=== PATIENT | male | born 1970 | race Caucasian/White ===

== ENCOUNTER 2020-11-26 21:41 | Emergency (ER) | payer OTHER, SELFPAY ==
[2020-11-26 21:58] VITALS: BP 147/94; PULSE 66; RESP 15; TEMP 36.6; O2SAT 97; BMI 41.7
--- NOTE | 2020-11-26 22:44 | W.ED.ABDPA2 ---
HPI - Abdominal Pain General: Chief Complaint: Abdominal Pain Stated Complaint: SHARP PAIN R SIDE, N/V Time Seen by Provider: 11/26/20 22:32 History of Present Illness: HPI narrative: Patient is a 50-year-old male comes to the ED with right flank pain, nausea and vomiting. Patient says symptoms started tonight abruptly just prior to arrival. He rates the pain a 9 out of 10 at its located in his right flank region. The pain has caused him multiple episodes of nausea and vomiting. He states that he cannot get comfortable and is constantly moving around due to the pain. He reports some mild dysuria but no visible blood in urine. Denies any fever, chills, chest pain, bowel symptoms. Denies any history of kidney stones. Associated Symptoms: Reports dysuria (mild burning pain when urinating), nausea and vomiting; Denies chills, constipation, diarrhea, fever(s), hematochezia and hematuria Review of Systems Const: Denies: fever(s), chills or fatigue Eyes: Denies: change in vision or eye discomfort ENMT: Denies: throat pain, odynophagia, nasal discharge or nasal congestion Card: Denies: chest pain, palpitations, edema, swelling of feet/ankles, dyspnea on exertion or orthopnea Resp: Denies: dyspnea, productive cough or non-productive cough GI: Reports: abdominal pain (right flank pain), nausea and vomiting; Denies: diarrhea, constipation or hematochezia : Reports: flank pain (right) and dysuria (mild burning pain when urinating); Denies: difficulty urinating or hematuria Musc: Denies: neck pain, back pain or extremity swelling Skin/Breast: Denies: rash or new lesions Neuro: Denies: headache(s), numbness in extremities or weakness in extremities PFSH ED PFSH: Family History Father CAD (coronary artery disease) Denies family history of Anesthesia complication Bleeding disorder Social History Smoking and tobacco status: never smoked Alcohol intake: never Adopted: No Caregiver/support person: Yes Lives independently: Yes Household members: spouse Housing: House Marital status: Sexually active: No Current gender identity: Male Kayla/Jainism: Orthodox Special kayla needs: No Physical Exam Const: COMMON NORMALS: patient oriented x3 and alert GENERAL APPEARANCE: cooperative and in distress (Patient appears in pain and is pacing in the room.) HENMT: COMMON NORMALS: normocephalic HEAD & SCALP: normocephalic MOUTH: Normal oral and palatal mucosa present THROAT: posterior oropharynx normal and uvula midline Neck/C-Spine: COMMON NORMALS: supple GENERAL: Yes normal visual inspection Resp: COMMON NORMALS: normal respiratory effort, No retractions, No use of accessory muscles and clear to auscultation bilaterally AUSCULTATION: clear to auscultation bilaterally Cardio: COMMON NORMALS: regular rate, regular rhythm, S1 normal heart sound present, S2 normal heart sound present, No gallops present (Cardio), No clicks present (Cardio), No murmurs present (Cardio) and Peripheral pulses 2+ throughout RATE: regular rate RHYTHM: regular rhythm HEART SOUNDS: S1 normal heart sound present and S2 normal heart sound present PERIPHERAL PULSES: Peripheral pulses 2+ throughout GI: COMMON NORMALS: Normal to inspection, nondistended, normoactive bowel sounds present, Soft to palpation and no masses PALPATION: Yes Soft to palpation and Yes Tenderness to palpation present (GI) (Generalized right flank tenderness. No localized tenderness noted) : COMMON NORMALS: Yes no CVA tenderness BLADDER/KIDNEY EXAM: Yes no CVA tenderness Back/Pelvis: COMMON NORMALS: no CVA tenderness Extremity: COMMON NORMALS: normal to inspection Neuro: COMMON NORMALS: patient oriented x3 SENSORIUM/ORIENTATION: Yes alert GAIT: Yes Normal gait present Skin: GENERAL SKIN EXAM: dry skin Course Reevaluation(s): Reevaluation #1: After patient received Toradol his right flank pain greatly improved. He was laying comfortably on exam bed in the room. Time: 00:29 Vital Signs: Vital signs: Vital Signs Temperature 98 F 11/26/20 21:58 Pulse Rate 62 11/27/20 00:17 Respiratory Rate 18 11/27/20 00:17 Blood Pressure 126/80 11/27/20 00:17 Pulse Oximetry 94 11/27/20 00:17 MDM - Abdominal Pain MDM Narrative: Medical decision making narrative: Patient is a 50-year-old male comes to the ED with right flank pain. Patient presents to the ED with classic kidney stone symptoms. Patient was pacing around the room due to being uncomfortable and in pain when I enter the room. He had some right flank tenderness upon exam. CBC, CMP were unremarkable. UA was positive for blood but no signs of infection noted. CT abdomen pelvis showed a 2 mm stone at right UVJ. Patient was given a dose of Toradol here in the ED and his pain improved greatly. He was also given a dose of tamsulosin IV fluids. I placed an order with case management to have patient referred to Dr. Garrett the urologist. Patient diagnosed with kidney stone on right side and discharged home with a prescription for naproxen, Zofran, tamsulosin and a written prescription for hydrocodone 5/325 mg 8 tablets. I told him family service caseworker will contact him in the next several days to set up an appointment with Dr. Garrett the urologist. Told the strain urine to catch stone to bring to urology for further analysis. Return to ED precautions given. Patient understood agree with plan. Lab Data: Attestation: I reviewed the patient's lab results. Labs: Lab Results 11/26/20 11/26/20 11/26/20 Range/Units 22:41 22:48 22:48 WBC 6.9 (4.0-10.0) 10^3/ uL RBC 5.20 (4.1-5.3) 10^6/u L Hgb 16.6 (11.7-16.6) g/dL Hct 46.8 (42.0-52.0) % MCV 90.0 (80-94) fL MCH 31.9 (28.0-34.0) pg MCHC 35.5 (30.0-36.0) g/dL RDW 13.3 (12.1-15.1) % Plt Count 147 (130-400) 10^3/c mm MPV 10.7 H (7.4-10.4) fL Neut % (Auto) 59.3 % Lymph % (Auto) 28.0 % [place] % (Auto) 9.7 % Eos % (Auto) 2.2 % Baso % (Auto) 0.7 % Neut # (Auto) 4.12 (1.8-7.7) 10^3/u L Lymph # (Auto) 1.9 (0.8-4.8) 10^3/u L [place] # (Auto) 0.7 (0.2-0.9) 10^3/u L Eos # (Auto) 0.2 (0.0-0.8) 10^3/u L Baso # (Auto) 0.1 (0.0-0.1) 10^3/u L Nucleated RBC % (a uto) 0 % Nucleated RBCs # 0.0 /100WBC Sodium 140 (136-145) mmol/L Potassium 3.9 (3.5-5.1) mmol/L Chloride 104 (98-107) mmol/L Carbon Dioxide 24 (22-29) mmol/L Anion Gap 15.9 (5-19) BUN 20 (6-20) mg/dL Creatinine 0.7 (0.7-1.2) mg/dL GFR Calculation 118.4 (90-130) mL/min Glucose 173 H (65-115) mg/dL Calculated Osmolal ity 297 H (285-295) mOsm/k g Calcium 9.2 (8.5-10.5) mg/dL Total Bilirubin 0.7 (0.15-1.2) mg/dL AST 38 (0-40) U/L ALT 36 (0-41) U/L Alkaline Phosphata se 82 (40-130) IU/L Total Protein 7.0 (6.6-8.7) g/dL Albumin 4.5 (3.5-5.2) g/dL Globulin 2.5 (1.3-4.6) g/dL Lipase 22 (13-60) U/L Urine Color Yellow (Yellow) Urine Appearance Clear (CLEAR) Urine pH 5 (5-7) Ur Specific Gravit y 1.030 (1.005-1.030) Urine Protein Neg (Negative) Urine Glucose (UA) Norm (Normal) Urine Ketones Negative (Negative) Urine Blood 2+ H (Negative) Urine Nitrate Negative (Negative) Urine Bilirubin Neg (Negative) Urine Urobilinogen Norm (Negative) mg/dL Ur Leukocyte Racquel ase Negative (Negative) Urine RBC 5-10 H (0-2) /hpf Urine WBC None (0-5) /hpf Ur Squamous Epith Cells 10-15 H (0-5) /hpf Amorphous Sediment Not Reportable Urine Bacteria Trace (NONE) /hpf Urine Mucus 2+ /hpf Imaging Data ^: CT Abd/Pel: Attestation: I personally reviewed and interpreted this imaging study as follows: Radiologist's impression: [address] [place] [address] CT Scan Report Signed Patient: Gumaro Pineda Unit #: [id number] : [id number] Age/Sex: 50 / M ADM Date: 11/26/20 Loc: ER Room/Bed: Attending Dr: Ordering Provider/Ordering MD: Ron Hartmann Date of Service: 11/26/20 Procedure(s): CT kidney stone 75412 Accession Number(s): [id number] Report Number: [id number] PROCEDURE INFORMATION: Exam: CT Abdomen And Pelvis Without Contrast Exam date and time: 11/26/2020 10:52 PM Age: 50 years old Clinical indication: Abdominal pain; Flank; Right; Prior surgery; Surgery type: Gb; Additional info: Right flank pain TECHNIQUE: Imaging protocol: Computed tomography of the abdomen and pelvis without contrast. Radiation optimization: All CT scans at this facility use at least one of these dose optimization techniques: automated exposure control; mA and/or kV adjustment per patient size (includes targeted exams where dose is matched to clinical indication); or iterative reconstruction. COMPARISON: No relevant prior studies available. RADIATION DOSE METRICS: Total DLP (mGy-cm): 2016.84 FINDINGS: Liver: Mild peripheral nodularity of the liver seen suggesting a degree of cirrhosis. Gallbladder and bile ducts: Cholecystectomy. Pancreas: Normal. No ductal dilation. Spleen: Spleen enlarged to 16 cm. Adrenal glands: Normal. No mass. Kidneys and ureters: Right ureterovesical junction punctate 2.3 mm calculus suspected on image 2 series 176 with mild right hydronephrosis and hydroureter. Stomach and bowel: Diverticulosis without diverticulitis. Appendix: No evidence of appendicitis. Intraperitoneal space: Unremarkable. No free air. No significant fluid collection. Vasculature: Unremarkable. No abdominal aortic aneurysm. Lymph nodes: Unremarkable. No enlarged lymph nodes. Urinary bladder: Unremarkable as visualized. Reproductive: Unremarkable as visualized. Bones/joints: Unremarkable. No acute fracture. Soft tissues: Unremarkable. CT/CT kidney stone [id number] IMPRESSION: 1. Right ureterovesical junction punctate 2.3 mm calculus suspected on image 2 series 176 with mild right hydronephrosis and hydroureter. 2. Spleen enlarged to 16 cm. 3. Mild peripheral nodularity of the liver seen suggesting a degree of cirrhosis. 4. Cholecystectomy. 5. Diverticulosis without diverticulitis. Radiation Dose CTDIVOL = (mGy): DLP = 2016.84 (mGy-cm) Dictated By: Geoffrey Wise MD Signed By: Geoffrey Wise MD Signed Date/Time: 11/26/200 DD/ [id number] Discharge Plan Discharge Patient Disposition: Home Clinical Impression: Kidney stone on right side Condition: Stable Prescriptions: New Zofran 4 mg tablet 4 mg PO Q8H Qty: 12 RF: 0 tamsulosin 0.4 mg capsule 0.4 mg PO DAILY Qty: 20 RF: 0 naproxen 500 mg tablet 500 mg PO BID PRN (Reason: pain) Qty: 15 RF: 0 No Action metformin 500 mg tablet 500 mg PO BID RF: 0 Discharge Orders: Discharge ED (Routine); Ordered 11/27/20 Ordered By: Ron Hartmann Referrals: Arya Shelby MD [Primary Care Provider] - Patient Instructions: Kidney Stones (ED), How to Strain Your Urine (ED), Opioid Safety Activity Restrictions/Additional Instructions: Follow-up with medical provider as directed. Case management should be contacting you in the next several days to set up an appointment with Dr. Garrett the urologist. Strain urine to catch stone and drink lots of fluid to stay hydrated and help pass stone. Take medications as prescribed. Return to the ER or your medical provider if condition worsens. Please read and understand discharge instructions. If any questions, please ask. Coding Level of Care Code ED B And B Gang Worker for Chg Fwd Exam Comprehensive
--- NOTE | 2020-11-26 22:49 | CTR_ITS ---
PROCEDURE INFORMATION: Exam: CT Abdomen And Pelvis Without Contrast Exam date and time: 11/26/2020 10:52 PM Age: 50 years old Clinical indication: Abdominal pain; Flank; Right; Prior surgery; Surgery type: Gb; Additional info: Right flank pain TECHNIQUE: Imaging protocol: Computed tomography of the abdomen and pelvis without contrast. Radiation optimization: All CT scans at this facility use at least one of these dose optimization techniques: automated exposure control; mA and/or kV adjustment per patient size (includes targeted exams where dose is matched to clinical indication); or iterative reconstruction. COMPARISON: No relevant prior studies available. RADIATION DOSE METRICS: Total DLP (mGy-cm): FINDINGS: Liver: Mild peripheral nodularity of the liver seen suggesting a degree of cirrhosis. Gallbladder and bile ducts: Cholecystectomy. Pancreas: Normal. No ductal dilation. Spleen: Spleen enlarged to 16 cm. Adrenal glands: Normal. No mass. Kidneys and ureters: Right ureterovesical junction punctate 2.3 mm calculus suspected on image 2 series 176 with mild right hydronephrosis and hydroureter. Stomach and bowel: Diverticulosis without diverticulitis. Appendix: No evidence of appendicitis. Intraperitoneal space: Unremarkable. No free air. No significant fluid collection. Vasculature: Unremarkable. No abdominal aortic aneurysm. Lymph nodes: Unremarkable. No enlarged lymph nodes. Urinary bladder: Unremarkable as visualized. Reproductive: Unremarkable as visualized. Bones/joints: Unremarkable. No acute fracture. Soft tissues: Unremarkable. CT/CT kidney stone [id number] IMPRESSION: 1. Right ureterovesical junction punctate 2.3 mm calculus suspected on image 2 series 176 with mild right hydronephrosis and hydroureter. 2. Spleen enlarged to 16 cm. 3. Mild peripheral nodularity of the liver seen suggesting a degree of cirrhosis. 4. Cholecystectomy. 5. Diverticulosis without diverticulitis. Radiation Dose CTDIVOL = (mGy): DLP = (mGy-cm)
[2020-11-26 22:53] LABS: Bilirubin Urine Neg (Negative); Blood Urine 2+ (Negative); Glucose Urine UA Norm (Normal); Ketones Urine Negative (Negative); Leukocyte Esterase Urine Negative (Negative); Nitrate Urine Negative (Negative); Protein Urine Neg (Negative); Urine Appearance Clear (CLEAR); Urine Color Yellow (Yellow); Urobilinogen Urine Norm (Negative); pH Urine 5 (5-7)
[2020-11-26 22:54] LABS: Bacteria Urine TRACE /hpf; Mucus Urine 2+ /hpf
[2020-11-26 22:54] LABS: Basophils # 0.1 10^3/uL (0.0-0.1); Basophils % 0.7 %; Eosinophils # 0.2 10^3/uL (0.0-0.8); Eosinophils % 2.2 %; Hematocrit 46.8 % (42.0-52.0); Hemoglobin 16.6 g/dL (11.7-16.6); Lymphocytes # 1.9 10^3/uL (0.8-4.8); Mean Corpuscular HGB Conc 35.5 g/dL (30.0-36.0); Mean Corpuscular Hemoglobin 31.9 pg (28.0-34.0); Mean Platelet Volume 10.7 fL (7.4-10.4); Monocytes # 0.7 10^3/uL (0.2-0.9); Monocytes % 9.7 %; Neutrophils # 4.12 10^3/uL (1.8-7.7); Neutrophils % 59.3 %; Nucleated Red Blood Cells % 0 %; Platelet Count 147 10^3/cmm (130-400); Red Cell Distribution Width 13.3 % (12.1-15.1); White Blood Count 6.9 10^3/uL (4.0-10.0)
[2020-11-26 22:55] LABS: Add Urine Culture? No
[2020-11-26 23:11] LABS: Alanine Aminotransferase 36 U/L (0-41); Albumin Level 4.5 g/dL (3.5-5.2); Alkaline Phosphatase 82 IU/L (40-130); Anion Gap 15.9 (5-19); Aspartate Amino Transferase 38 U/L (0-40); Blood Urea Nitrogen 20 mg/dL (6-20); Calcium 9.2 mg/dL (8.5-10.5); Carbon Dioxide 24 mmol/L (22-29); Chloride 104 mmol/L (98-107); Globulin 2.5 g/dL (1.3-4.6); Glomerular Filtration Rate 118.4 mL/min (90-130); Glucose 173 mg/dL (65-115); Lipase 22 U/L (13-60); Osmolality Calculated 297 mOsm/kg (285-295); Potassium 3.9 mmol/L (3.5-5.1); Sodium 140 mmol/L (136-145); Total Bilirubin 0.7 mg/dL (0.15-1.2)
[2020-11-27] MEDS: ondansetron 2 mg/ML SDV 2 mL 4 MG IVP (00:01)
[2020-11-27] MEDS: tamsulosin 0.4 mg Capsule PO (00:03)
[2020-11-27] MEDS: ketorolac 30 mg/mL INJ IVP (00:03)
[2020-11-27] MEDS: sodium chloride 0.9% 1,000 ML 999 ML IV (00:04)
[2020-11-27 00:17] VITALS: BP 126/80; PULSE 62; RESP 18; O2SAT 94
--- NOTE | 2020-11-27 09:28 | DCPLANNER ---
mobile manager had message to schedule a follow up appointment for patient with Dr. Garrett. mobile manager called the office of Dr. Garrett, spoke with Sultana, gave clinic patients information. mobile manager was told that patients information would be printed and reviewed. Clinic will call patient with appointment information.
--- NOTE | 2020-11-27 09:35 | DCPLANNER ---
health care manager had message to schedule a follow up appointment for patient with Dr. Garrett. health care manager called the office of Dr. Garrett, spoke with Sultana, gave clinic patients information. health care manager was told that patients information would be printed and reviewed. Clinic will call patient with appointment information.
--- NOTE | 2020-11-28 12:34 | DCPLANNER ---
Patient has a follow up appointment scheduled for Monday, November 30, 2020 at 11:[address] Garrett. Clinic will call patient with appointment information.
--- NOTE | 2020-11-30 13:46 | DCPLANNER ---
Patient had follow up appointment scheduled for 11.30.[address] Garrett - patient did attend appointment.
== END 2020-11-27 01:09 | disposition home or self-care (01) ==
PROVIDERS: Emergency Provider Physician Assistant; PCP Family Medicine
DX: N20.0 Calculus of kidney (principal)
CPT/HCPCS: 74176; 80053; 81001; 83690; 85025; 96361; 96374; 96375; 99283; J1885; J2405; J7030

== ENCOUNTER 2020-11-30 09:48 | Outpatient (CLI) | payer OTHER, SELFPAY ==
--- NOTE | 2020-11-30 10:00 | XR_ITS ---
WS: [id number] Exam: XR [id number] Date/Time of Exam: 11/30/2020 9:51 AM Reason For Exam: KIDNEY STONE No sign of bowel obstruction or free air. No calcifications project over the renal silhouettes. Organ margins appear normal. Bony structures are intact. Signs of prior cholecystectomy. XR/XR KUB [id number] IMPRESSION: 1. No acute abdominal process. 2. No calcifications are noted in the region of the kidneys. Nonspecific left p elvic calcifications are seen.
== END 2020-11-30 09:49 | disposition home or self-care (01) ==
LOC: RAD 09:50
PROVIDERS: PCP Family Medicine; Visit Provider Urology
DX: N20.0 Calculus of kidney (principal)
CPT/HCPCS: 74018; 81003

== ENCOUNTER 2021-09-08 10:28 | Emergency (ER) | payer OTHER, SELFPAY ==
[2021-09-08 10:41] VITALS: BP 158/105; PULSE 73; RESP 16; TEMP 36.8; O2SAT 95; BMI 32.2
[2021-09-08 10:52] LABS: Basophils % 0.3 %; Hematocrit 47.7 % (42.0-52.0); Hemoglobin 16.1 g/dL (11.7-16.6); Lymphocytes # 0.8 10^3/uL (0.8-4.8); Lymphocytes % 9.2 %; Mean Corpuscular HGB Conc 33.8 g/dL (30.0-36.0); Mean Corpuscular Hemoglobin 30.8 pg (28.0-34.0); Mean Corpuscular Volume 91.2 fl (80-94); Mean Platelet Volume 10.8 fL (7.4-10.4); Monocytes # 0.8 10^3/uL (0.2-0.9); Monocytes % 9.1 %; Neutrophils # 6.96 10^3/uL (1.8-7.7); Neutrophils % 80.9 %; Nucleated Red Blood Cells % 0 %; Platelet Count 149 10^3/cmm (130-400); Red Blood Count 5.23 10^6/uL (4.1-5.3); Red Cell Distribution Width 13.1 % (12.1-15.1); White Blood Count 8.6 10^3/uL (4.0-10.0)
--- NOTE | 2021-09-08 11:01 | ED_ITS ---
HPI - Abdominal Pain General: Chief Complaint: Abdominal Pain Stated Complaint: possible kidney stone Time Seen by Provider: 09/08/21 10:54 Source: patient Mode of arrival: ambulatory Limitations: no limitations History of Present Illness: 50-year-old male presents to the ER today for left flank pain and difficulty urinating x4 days. Patient reports pain started on and felt similar to a prior kidney stone so he took Tylenol which seemed to help. Patient reports he did okay most of the day Thursday but during the night Thursday the pain started again. Patient reports pain is on the left side and radiates from the back to the front. Patient reports some blood with his urine this morning and difficulty urinating. Patient reports pain comes and goes but when he has bouts of pain he reports chills, nausea and dry heaves. Patient reports he had a kidney stone about 1 year ago which felt very similar. Patient denies any other illnesses at this time. Patient reports a history of bariatric surgery. Onset (ago): day(s) (Four) Pain Consistency: intermittent Location: L flank Severity: similar to previous episodes Pain scale (0-10): 8 Quality: stabbing Radiation: L flank Associated Symptoms: Reports nausea Review of Systems General: Reports: 10 or more systems reviewed and unremarkable except in HPI and below GI: Reports: nausea PFSH ED PFSH: Family History Father CAD (coronary artery disease) Denies family history of Anesthesia complication Bleeding disorder Social History Smoking and tobacco status: never smoked Alcohol intake: never Adopted: No Caregiver/support person: Yes Lives independently: Yes Housing: House Marital status: History of recent travel: No Sexually active: No Kayla/Tenriism: Anabaptist Special kayla needs: No Physical Exam Const: COMMON NORMALS: average body habitus, patient oriented x3, no limitations, healthy appearing and alert OTHER: Mild distress, patient appears uncomfortable Neck/C-Spine: COMMON NORMALS: no lymphadenopathy Resp: EFFORT & INSPECTION: Yes able to speak in complete sentences Cardio: COMMON NORMALS: regular rate and regular rhythm RATE: regular rate RHYTHM: regular rhythm GI: COMMON NORMALS: Normal to inspection, nondistended, normoactive bowel sounds present and Soft to palpation PALPATION: Yes Soft to palpation OTHER: Left flank tenderness noted to palpation. Extremity: COMMON NORMALS: normal to inspection and full ROM Neuro: COMMON NORMALS: patient oriented x3 SENSORIUM/ORIENTATION: Yes alert Psych: COMMON NORMALS: mental status grossly normal, Normal thought process present and cooperative THOUGHT PROCESS: Normal thought process present Skin: COMMON NORMALS: no rashes or lesions noted GENERAL SKIN EXAM: no rashes or lesions noted Course ED course: Patient presents to the ER today for left flank pain and possible kidney stone. Patient has a history of a stone about 1 year ago and this seems very similar. Patient reports pain started 4 days ago and has been worse over the last 24 to 48 hours. Patient reports pain starts in the left flank and radiates anteriorly into the left groin. He reports nausea and dry heaves. Patient reports hematuria this morning. We will get labs, UA, and a CT of the abdomen to make sure stone is able to pass. We will give patient a bolus of saline and Toradol for pain. Vital Signs: Vital signs: Vital Signs Temperature 98.2 F 09/08/21 10:41 Pulse Rate 89 09/08/21 12:16 Respiratory Rate 16 09/08/21 12:16 Blood Pressure 151/98 09/08/21 12:16 Pulse Oximetry 98 09/08/21 12:16 MDM - Abdominal Pain Medical Decision Making 50-year-old male presents to the ER today for left flank pain x4 days. Patient has a history of stones and feels like this is the same thing again. He reports blood in his urine this morning along with difficulty urinating. We will get imaging and labs at this time. CT does indicate a 3 mm stone in the left ureter. This likely will pass without complication. Patient has mild to moderate hydronephrosis however is urinating. Patient given fluids, Toradol, and Zofran in the ER and reports improvement in symptoms. We will send patient home with hydrocodone for several days in addition to tamsulosin. Patient unable to take anti-inflammatories due to bariatric surgery. Patient CT does indicate cirrhosis of the liver with some worsening portal hypertension. I discussed findings with family who reports patient has never had this worked up. I would highly recommend this be followed up on at this time. I will place a referral to case management but patient should also discuss this with his primary care this week. Patient takes no medications on a regular basis that we need to manage at this time. Return to the ER with any new or worsening symptoms. Patient verbalized understanding and is in agreement with the treatment plan. Lab Data Reviewed, discussed findings of cirrhosis with possible portal venous hypertension with family and patient. Will refer to GI. : 09/08/21 10:44 09/08/21 10:44 Labs/Radiology: Radiology Impressions Abdomen/Pelvis CT 09/08/21 11:01 IMPRESSION: 1. There is a 3 mm calculus in the mid left ureter with obstructive changes as described above. 2. Cirrhotic liver with associated splenomegaly and abdominal varices consistent with portal venous hypertension. Laboratory Results WBC 8.6 10^3/uL (4.0-10.0) 09/08/21 10:44 RBC 5.23 10^6/uL (4.1-5.3) 09/08/21 10:44 Hgb 16.1 g/dL (11.7-16.6) 09/08/21 10:44 Hct 47.7 % (42.0-52.0) 09/08/21 10:44 MCV 91.2 fl (80-94) 09/08/21 10:44 MCH 30.8 pg (28.0-34.0) 09/08/21 10:44 MCHC 33.8 g/dL (30.0-36.0) 09/08/21 10:44 RDW 13.1 % (12.1-15.1) 09/08/21 10:44 Plt Count 149 10^3/cmm (130-400) 09/08/21 10:44 MPV 10.8 fL (7.4-10.4) H 09/08/21 10:44 Neut % (Auto) 80.9 % 09/08/21 10:44 Lymph % (Auto) 9.2 % 09/08/21 10:44 [place] % (Auto) 9.1 % 09/08/21 10:44 Eos % (Auto) 0.0 % 09/08/21 10:44 Baso % (Auto) 0.3 % 09/08/21 10:44 Neut # (Auto) 6.96 10^3/uL (1.8-7.7) 09/08/21 10:44 Lymph # (Auto) 0.8 10^3/uL (0.8-4.8) 09/08/21 10:44 [place] # (Auto) 0.8 10^3/uL (0.2-0.9) 09/08/21 10:44 Eos # (Auto) 0.0 10^3/uL (0.0-0.8) 09/08/21 10:44 Baso # (Auto) 0.0 10^3/uL (0.0-0.1) 09/08/21 10:44 Nucleated RBC % (auto) 0 % 09/08/21 10:44 Nucleated RBCs # 0.0 /100WBC 09/08/21 10:44 Sodium 138 mmol/L (136-145) 09/08/21 10:44 Potassium 4.6 mmol/L (3.5-5.1) 09/08/21 10:44 Chloride 98 mmol/L (98-107) 09/08/21 10:44 Carbon Dioxide 28 mmol/L (22-29) 09/08/21 10:44 Anion Gap 16.6 (5-19) 09/08/21 10:44 BUN 15 mg/dL (6-20) 09/08/21 10:44 Creatinine 0.9 mg/dL (0.7-1.2) 09/08/21 10:44 GFR Calculation 88.6 mL/min (90-130) L 09/08/21 10:44 Glucose 164 mg/dL (65-115) H 09/08/21 10:44 Calculated Osmolality 290 mOsm/kg (285-295) 09/08/21 10:44 Calcium 9.1 mg/dL (8.5-10.5) 09/08/21 10:44 Total Bilirubin 0.7 mg/dL (0.15-1.2) 09/08/21 10:44 AST 36 U/L (0-40) 09/08/21 10:44 ALT 40 U/L (0-41) 09/08/21 10:44 Alkaline Phosphatase 129 IU/L (40-130) 09/08/21 10:44 Total Protein 7.5 g/dL (6.6-8.7) 09/08/21 10:44 Albumin 4.3 g/dL (3.5-5.2) 09/08/21 10:44 Globulin 3.2 g/dL (1.3-4.6) 09/08/21 10:44 Urine Color Yellow (Yellow) 09/08/21 11:17 Urine Appearance Sl hazy (CLEAR) 09/08/21 11:17 Urine pH 5 (5-7) 09/08/21 11:17 Ur Specific [place] 1.025 (1.005-1.030) 09/08/21 11:17 Urine Protein Trace (Negative) 09/08/21 11:17 Urine Glucose (UA) Norm (Normal) 09/08/21 11:17 Urine Ketones 1+ (Negative) H 09/08/21 11:17 Urine Blood 3+ (Negative) H 09/08/21 11:17 Urine Nitrate Negative (Negative) 09/08/21 11:17 Urine Bilirubin Neg (Negative) 09/08/21 11:17 Urine Urobilinogen 1 mg/dL (Negative) H 09/08/21 11:17 Ur Leukocyte Esterase Negative (Negative) 09/08/21 11:17 Urine RBC 80-100 /hpf (0-2) H 09/08/21 11:17 Urine WBC 0-4 /hpf (0-5) H 09/08/21 11:17 Ur Squamous Epith Cells 15-25 /hpf (0-5) H 09/08/21 11:17 Amorphous Sediment Not Reportable 09/08/21 11:17 Urine Bacteria Trace /hpf (NONE) 09/08/21 11:17 Critical Care Time Critical Care Time: Critical Care Time: No Discharge Plan Discharge Patient Disposition: Home Clinical Impression: Urolithiasis Condition: Stable Prescriptions: New tamsulosin 0.4 mg capsule 0.4 mg PO DAILY Qty: 14 0RF hydrocodone-acetaminophen 5-325 mg tablet 1 tab PO Q8H PRN (Reason: pain) Qty: 10 0RF No Action metformin 500 mg tablet 500 mg PO BID 0RF Zofran 4 mg tablet 4 mg PO Q8H Qty: 12 0RF tamsulosin 0.4 mg capsule 0.4 mg PO DAILY Qty: 20 0RF naproxen 500 mg tablet 500 mg PO BID PRN (Reason: pain) Qty: 15 0RF Discharge Orders: Discharge ED (Routine); Ordered 09/08/21 Ordered By: Beba Rubalcava Referrals: Arya Shelby MD [Primary Care Provider] - Discharge Diet: Usual diet Discharge Activity: Resume usual activity Patient Instructions: Opioid Safety Activity Restrictions/Additional Instructions: Take medications as prescribed. Strain urine until you pass the stone. Follow- up with PCP in 3 to 5 days for follow-up and to discuss CT results. Return to the ER with new or worsening symptoms. Coding Level of Care Code ED Senior Hydrogeologist for Roselia Fwnergo Exam Comprehensive
--- NOTE | 2021-09-08 11:01 | CTR_ITS ---
PROCEDURE INFORMATION: Exam: CT Abdomen And Pelvis Without Contrast Exam date and time: 09/08/2021 11:01 AM Age: 50 years old Clinical indication: Abdominal pain; Flank; Left; Additional info: L flank pain TECHNIQUE: Imaging protocol: Computed tomography of the abdomen and pelvis without contrast. Radiation optimization: All CT scans at this facility use at least one of these dose optimization techniques: automated exposure control; mA and/or kV adjustment per patient size (includes targeted exams where dose is matched to clinical indication); or iterative reconstruction. COMPARISON: CT kidney stone [id number] 11/26/2020 10:58 PM RADIATION DOSE METRICS: Total DLP (mGy-cm): 2122.09 FINDINGS: Liver: Lobulated liver consistent with cirrhosis. Gallbladder and bile ducts: Normal. No calcified stones. No ductal dilation. Pancreas: Normal. No ductal dilation. Spleen: Splenomegaly. There is an incidental splenule. Adrenal glands: Normal. No mass. Kidneys and ureters: There is a 3 mm calculus in the mid left ureter.Mild to moderate hydronephrosis/hydroureter and associated inflammatory stranding. Stomach and bowel: Gastric bypass changes. There is diverticulosis of the colon without evidence of diverticulitis. Appendix: No evidence of appendicitis. Intraperitoneal space: There are postoperative changes in the ventral abdomen. Vasculature: Multiple abdominal varices consistent with portal venous hypertension. Lymph nodes: Unremarkable. No enlarged lymph nodes. Urinary bladder: Unremarkable as visualized. Reproductive: There are calcifications in the prostate gland. Bones/joints: There are degenerative changes in the visualized spine. There is partial osseous fusion across the L5-S1 level. Soft tissues: There are varicosities in the subcutaneous soft tissues of abdomen. CT/CT kidney stone [id number] IMPRESSION: 1. There is a 3 mm calculus in the mid left ureter with obstructive changes as described above. 2. Cirrhotic liver with associated splenomegaly and abdominal varices consistent with portal venous hypertension.
[2021-09-08 11:08] VITALS: BP 173/110; PULSE 75; RESP 18; O2SAT 95
[2021-09-08 11:15] LABS: Alanine Aminotransferase 40 U/L (0-41); Albumin Level 4.3 g/dL (3.5-5.2); Alkaline Phosphatase 129 IU/L (40-130); Anion Gap 16.6 (5-19); Aspartate Amino Transferase 36 U/L (0-40); Blood Urea Nitrogen 15 mg/dL (6-20); Calcium 9.1 mg/dL (8.5-10.5); Carbon Dioxide 28 mmol/L (22-29); Chloride 98 mmol/L (98-107); Globulin 3.2 g/dL (1.3-4.6); Glomerular Filtration Rate 88.6 mL/min (90-130); Glucose 164 mg/dL (65-115); Osmolality Calculated 290 mOsm/kg (285-295); Potassium 4.6 mmol/L (3.5-5.1); Sodium 138 mmol/L (136-145); Total Bilirubin 0.7 mg/dL (0.15-1.2); Total Protein 7.5 g/dL (6.6-8.7)
[2021-09-08] MEDS: sodium chloride 0.9% 1,000 ML 999 ML IV (11:18)
[2021-09-08] MEDS: ketorolac 30 mg/mL INJ 15 MG IVP (11:18)
[2021-09-08] MEDS: ondansetron 2 mg/ML SDV 2 mL 4 MG IVP (11:18)
--- NOTE | 2021-09-08 11:23 | PC.NURSE ---
Pt gone to CT
[2021-09-08 11:41] LABS: Add Urine Microscopic? YES; Bilirubin Urine Neg (Negative); Blood Urine 3+ (Negative); Glucose Urine UA Norm (Normal); Ketones Urine 1+ (Negative); Leukocyte Esterase Urine Negative (Negative); Nitrate Urine Negative (Negative); Protein Urine Trace (Negative); Specific Gravity, Urine 1.025 (1.005-1.030); Urine Appearance SL Hazy (CLEAR); Urine Color Yellow (Yellow); Urobilinogen Urine 1 mg/dL (Negative); pH Urine 5 (5-7)
[2021-09-08 11:42] LABS: Add Urine Culture? No; Bacteria Urine TRACE /hpf; RBC Urine 80-100 /hpf (0-2); Squamous Epithelial Cell Urine 15-25 /hpf (0-5); WBC Urine 0-4 /hpf (0-5)
[2021-09-08 12:16] VITALS: BP 151/98; PULSE 89; RESP 16; O2SAT 98
[2021-09-08 13:21] VITALS: BP 135/83; PULSE 80; RESP 16; O2SAT 96
--- NOTE | 2021-09-10 08:36 | DCPLANNER ---
Addendum entered by Thu Lerma 09/25/21 14:34: Patient had a follow up with Dr. Minaya on 09.19.21 - patient did attend appointment. Addendum entered by Thu Lerma 09/17/21 07:15: Patient has a follow up appointment scheduled that was rescheduled for September at 4:[address] Minaya. Original Note: customer marketing manager had message to schedule a follow up appointment for patient with Dr. Minaya. customer marketing manager called the office of Dr. Minaya, spoke with Miriam, gave clinic patients information. A follow up appointment was scheduled for Saturday, September 11, 2021 at 9:00. Case manger gave appointment information to patients daughter.
== END 2021-09-08 13:17 | disposition home or self-care (01) ==
PROVIDERS: Emergency Provider Physician Assistant; PCP Family Medicine
DX: N20.9 Urinary calculus, unspecified (principal); Z79.84 Long term (current) use of oral hypoglycemic drugs
CPT/HCPCS: 74176; 80053; 81001; 85025; 96361; 96374; 96375; 99284; J1885; J2405; J7030

== ENCOUNTER 2021-09-25 09:55 | Outpatient (CLI) | payer OTHER, SELFPAY ==
--- NOTE | 2021-09-25 09:45 | XRR_ITS ---
PROCEDURE INFORMATION: Exam: XR Abdomen Exam date and time: 09/25/2021 10:16 AM Age: 50 years old Clinical indication: Nephrolithiasis. TECHNIQUE: Imaging protocol: XR of the abdomen. Views: Frontal supine view of the abdomen. 1 View. COMPARISON: CT kidney stone [id number] 09/08/2021 11:23 AM FINDINGS: Tubes, catheters and devices: There are surgical clips overlying the lumbar spine and pelvis. Gastrointestinal tract: There are a few dilated loops of small bowel with possible small bowel wall thickening. Organs: The renal shadows are obscured by bowel gas. No definite renal stone is identified by plain radiograph. Vasculature: Probable phlebolith in the left pelvis. Bones/joints: No gross acute fracture. XR/XR KUB [id number] IMPRESSION: 1. The renal shadows are obscured by bowel gas. No definite renal stone is identified by plain radiograph. 2. There are a few dilated loops of small bowel with possible small bowel wall thickening. Consider CT to further assess if clinically warranted.
== END 2021-09-25 09:56 | disposition home or self-care (01) ==
PROVIDERS: PCP Family Medicine; Visit Provider Urology
DX: N20.0 Calculus of kidney (principal)
CPT/HCPCS: 74018; 81003

== ENCOUNTER 2021-10-11 08:09 | Outpatient (CLI) | payer OTHER, SELFPAY ==
--- NOTE | 2021-10-11 07:30 | XR_ITS ---
WS: [id number] XR KUB [id number] REASON FOR EXAM: Left Ureteral Calculus FINDINGS: No intrarenal calculi are identified. No ureteral calculi are noted. The distal left ureteral calculus seen on the CT examination of 09/09/19 is not readily identifiable on the current study or the previous examination of 09/25/2021. No calculus is identified overlying the distal most left ureter or bladder. No other significant abnormalities. XR/XR KUB [id number] IMPRESSION: No urinary tract calculi identified as above.
== END 2021-10-11 08:10 | disposition home or self-care (01) ==
PROVIDERS: PCP Family Medicine; Visit Provider Urology
DX: N20.1 Calculus of ureter (principal)
CPT/HCPCS: 74018; 81003

== ENCOUNTER 2022-01-09 07:27 | Emergency (ER) | payer OTHER, SELFPAY ==
[2022-01-09] VITALS (7 sets, daily range): BP systolic 85–114; BP diastolic 42–75; PULSE 64–89; RESP 16–18; TEMP 36.6; O2SAT 94–99; BMI 31.5
--- NOTE | 2022-01-09 08:06 | ECG_ITS ---
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 Measurements Intervals [place] Rate: 65 P: 2 ME: 152 QRS: 20 QRSD: 102 T: 52 QT: 418 QTc: 436 Interpretive Statements SINUS RHYTHM No previous ECG available for comparison Electronically Signed On 01-09-2022 19:25:23 CDT by Aneta Crisostomo M.D. [id number]
--- NOTE | 2022-01-09 08:06 | XR_ITS ---
WS: [id number] Portable AP upright chest, 01/09/2022 Clinical Data: dyspnea/cough Comparison: Portable chest, 02/11/2006. Findings: There is minimal patchy opacity overlying the surface of the left diaphragm which could rep resent pneumonia or atelectasis. No nodules, masses or effusions are seen. The heart is normal. The p ulmonary vascularity is not increased. No pneumothorax is seen. There are clips in the left upper alonzo drant from surgery. XR/XR chest 1V portable [id number] Impression: Patchy opacity overlying left diaphragm which could represent atelectasis and/o r pneumonia.
--- NOTE | 2022-01-09 08:06 | CT_ITS ---
WS: [id number] CT ABDOMEN PELVIS TECHNIQUE: Contrast-enhanced CT of the abdomen and pelvis with coronal and sagittal reformatted image s. CLINICAL INFORMATION: abd pain COMPARISON: CT September 08, 2021 DLP: 1414.[address] scans at [facility] use at least one of these dose optimization techniques: automated e xposure control; mA and/or kV adjustment per patient size (includes targeted exams where dose is matc hed to clinical indication); or iterative reconstruction. FINDINGS: Small scattered locules of free air in the upper abdomen about the LEFT hepatic lobe. This extends along the undersurface of the LEFT hepatic lobe adjacent to the gastric bypass anastomosis. N o retroperitoneal air. A few thickened loops of small bowel in the LEFT midabdomen likely reactive. N o portal venous air. No pneumatosis. Normal caliber abdominal aorta. Celiac and SMA appear patent. BARB is patent. Disc space narrowing wor se L4-L5 and L5-S1. Hypertrophic changes lower thoracic spine. Bibasilar atelectasis. Mild diffuse fatty infiltration of the liver. Small amount of perihepatic asci azam. Normal portal vein and splenic vein. Prior cholecystectomy. Normal spleen. Proximal small bowel anastomosis with surgical clips in the LEFT midabdomen. Small amount of free fluid in the pelvis. A few sigmoid diverticuli. No evidence of acute diverticuli tis. Fat-containing umbilical hernia. Anterior abdominal wall (tympanic collaterals. CT/CT abdomen pelvis w con* [id number] IMPRESSION: 1. Scattered locules of free air in the upper anterior abdomen. This is center ed about the gastric bypass anastomosis suspicious for anastomosis breakdown or perforation. 2. Additional small bowel anastomosis in the LEFT midabdomen which is normal i n appearance. 3. Small amount of free fluid in the pelvis. 4. Prior cholecystectomy. 5. Normal caliber abdominal aorta. Celiac and SMA are patent. 6. No portal venous air. 7. Enlarged prostate measuring 5.1 cm. Recommend correlation PSA. Notified Ronnie Burnett DO at 01/09/2022 9:02 AM.
[2022-01-09 08:16] LABS: Basophils % 0.3 %; Eosinophils % 0.3 %; Hematocrit 47.5 % (42.0-52.0); Lymphocytes # 1.1 10^3/uL (0.8-4.8); Lymphocytes % 12.5 %; Mean Corpuscular HGB Conc 33.7 g/dL (30.0-36.0); Mean Corpuscular Hemoglobin 30.8 pg (28.0-34.0); Mean Corpuscular Volume 91.5 fl (80-94); Mean Platelet Volume 10.8 fL (7.4-10.4); Monocytes # 0.4 10^3/uL (0.2-0.9); Monocytes % 4.1 %; Neutrophils # 7.26 10^3/uL (1.8-7.7); Neutrophils % 82.6 %; Nucleated Red Blood Cells % 0 %; Platelet Count 160 10^3/cmm (130-400); Red Blood Count 5.19 10^6/uL (4.1-5.3); Red Cell Distribution Width 12.9 % (12.1-15.1); White Blood Count 8.8 10^3/uL (4.0-10.0)
[2022-01-09] MEDS: ondansetron 2 mg/ML SDV 2 mL 4 MG IVP (08:16)
[2022-01-09] MEDS: morphine 4 mg/mL SDV 1 mL IVP ×3 (08:16→11:27)
[2022-01-09] MEDS: sodium chloride 0.9% 1,000 ML 999 ML IV ×2 (08:20→09:20)
--- NOTE | 2022-01-09 08:30 | PC.NURSE ---
PT PLACED ON CONTINUOUS NIBP, SPO2, AND CM
[2022-01-09] MEDS: iohexol 350 mg/mL 100 mL Btl IV (08:31)
[2022-01-09 08:40] LABS: Alanine Aminotransferase 42 U/L (0-41); Albumin Level 4.1 g/dL (3.5-5.2); Alkaline Phosphatase 117 IU/L (40-130); Anion Gap 17.2 (5-19); Aspartate Amino Transferase 39 U/L (0-40); Blood Urea Nitrogen 18 mg/dL (6-20); Calcium 9.2 mg/dL (8.5-10.5); Carbon Dioxide 26 mmol/L (22-29); Chloride 101 mmol/L (98-107); Globulin 2.9 g/dL (1.3-4.6); Glomerular Filtration Rate 101.1 mL/min (90-130); Glucose 154 mg/dL (65-115); Lipase 19 U/L (13-60); Magnesium 1.8 mg/dL (1.7-2.3); Osmolality Calculated 295 mOsm/kg (285-295); Potassium 4.2 mmol/L (3.5-5.1); Sodium 140 mmol/L (136-145); Total Bilirubin 1.1 mg/dL (0.15-1.2)
[2022-01-09 08:55] LABS: Ketone (Acetest) Serum Negative (Negative)
[2022-01-09 09:05] LABS: Lactic Sepsis W/Reflex 1.8 mmol/L (0.5-2.2)
--- NOTE | 2022-01-09 09:18 | ED_ITS ---
HPI - Abdominal Pain General: Chief Complaint: Shortness of Breath/Dyspnea Stated Complaint: SOB, sweaty Time Seen by Provider: 01/09/22 07:31 Source: patient Mode of arrival: ambulatory Limitations: no limitations History of Present Illness: 51-year-old male presents emergency room complaining of abdominal pain and shortness of breath. Patient had gastric bypass 1 year ago at [facility] he also has Torres due to his obesity. Overnight he began to get severe abdominal pain progressively worse to the point where is difficult for him to breathe due to pain.He has not had any hematemesis or coffee-ground emesis. He has not had any esophageal varices that he is aware of in the past. The other medication he takes is multivitamins since his gastric surgery. He denies any chest pain. MD elicited complaint: abdominal pain Pertinent past history: none Onset (ago): minute(s) Pain Consistency: constant Location: Diffuse Severity: mild Quality: cramping Radiation: none Migration to: no migration Exacerbating factors: movement Relieving factors: nothing and rest Associated Symptoms: Reports nausea; Denies anorexia, belching, bloating, change in bowel habits, change in stool character, chills, coffee ground emesis, constipation, GI cramping, diarrhea, dyspepsia, dysuria, excessive flatus, fever(s), heartburn, hematochezia, hematuria, hematemesis, fecal incontinence, loose stools, melena, poor appetite, syncope and vomiting Review of Systems Const: Denies: fever(s), chills, fatigue or malaise ENMT: Denies: throat pain, ear or mastoid pain, nasal discharge or nasal congestion Card: Denies: syncope Resp: Denies: dyspnea, productive cough or non-productive cough GI: Reports: abdominal pain and nausea; Denies: vomiting, hematemesis, coffee ground emesis, heartburn, diarrhea, constipation, bloating, GI cramping, belching, excessive flatus, fecal incontinence, change in bowel habits, change in stool character, hematochezia or melena : Denies: flank pain, difficulty urinating, dysuria or hematuria Skin/Breast: Denies: rash or pruritus PFSH ED PFSH: Medical History Left ureteral calculus Surgical History H/O gastric bypass History of eye surgery PROSTHETIC RIGHT EYE History of laparoscopic cholecystectomy Family History Father , AT AGE 74 CAD (coronary artery disease) Heart attack Denies family history of Anesthesia complication Bleeding disorder Social History Smoking and tobacco status: never smoked Alcohol intake: never Adopted: No Caregiver/support person: Yes Lives independently: Yes Housing: House Marital status: Current occupational status: employed History of recent travel: No Sexually active: No Kayla/Bahai: Lutheran Special kayla needs: No Physical Exam Const: GENERAL APPEARANCE: cooperative ORIENTATION/CONSCIOUSNESS: Yes awake, Yes oriented to person, Yes oriented to place and Yes oriented to time HENMT: COMMON NORMALS: normocephalic, atraumatic and hearing grossly normal bilaterally HEAD & SCALP: normocephalic and atraumatic Neck/C-Spine: COMMON NORMALS: no JVD Resp: COMMON NORMALS: normal respiratory effort, No retractions, No use of accessory muscles and clear to auscultation bilaterally AUSCULTATION: clear to auscultation bilaterally Cardio: COMMON NORMALS: no JVD, regular rate, regular rhythm and No murmurs present (Cardio) RATE: regular rate RHYTHM: regular rhythm GI: COMMON NORMALS: No hepatosplenomegaly present AUSCULTATION: Yes Absent bowel sounds PALPATION: Yes Tenderness to palpation present (GI), Yes Guarding due to palpation present (GI) and Yes No hepatosplenomegaly present Extremity: COMMON NORMALS: normal to inspection, capillary refill normal, no clubbing, cyanosis or edema, no calf tenderness and no pedal edema Neuro: SENSORIUM/ORIENTATION: Yes oriented to person, Yes oriented to place and Yes oriented to time Skin: COMMON NORMALS: no rashes or lesions noted GENERAL SKIN EXAM: no rashes or lesions noted Course Vital Signs: Vital signs: Vital Signs Temperature 97.8 F 01/09/22 07:44 Pulse Rate 76 01/09/22 10:00 Respiratory Rate 18 01/09/22 11:27 Blood Pressure 114/74 01/09/22 10:00 Pulse Oximetry 95 01/09/22 11:27 MDM - Abdominal Pain Medical Decision Making Patient has acute abdomen on exam. He is given IV fluids for pressure support his initial blood pressures 85 systolic he did respond positively up to 107 after the first liter. CT showed as expected perforated viscus suspect at the gastric anastomosis site with free air under the abdomen its not retroperitoneal so most likely not a gastric perforation. Patient was given Unasyn here cultures done continue fluid support and pain medications. Making arrangements for transfer. Dr. Saleh at [facility] has agreed to take on transfer be transferred to ambulance blood pressure is improved stable at time of transfer Medical Records I reviewed the patient's medical records. Lab Data I reviewed the patient's lab results. : 01/09/22 08:12 01/09/22 08:12 Labs/Radiology: Radiology Impressions Abdomen/Pelvis CT 01/09/22 08:06 IMPRESSION: 1. Scattered locules of free air in the upper anterior abdomen. This is centered about the gastric bypass anastomosis suspicious for anastomosis breakdown or perforation. 2. Additional small bowel anastomosis in the LEFT midabdomen which is normal in appearance. 3. Small amount of free fluid in the pelvis. 4. Prior cholecystectomy. 5. Normal caliber abdominal aorta. Celiac and SMA are patent. 6. No portal venous air. 7. Enlarged prostate measuring 5.1 cm. Recommend correlation PSA. Notified Ronnie Burnett DO at 01/09/2022 9:02 AM. Chest X-Ray 01/09/22 08:06 Impression: Patchy opacity overlying left diaphragm which could represent atelectasis and/or pneumonia. Laboratory Results WBC 8.8 10^3/uL (4.0-10.0) 01/09/22 08:12 RBC 5.19 10^6/uL (4.1-5.3) 01/09/22 08:12 Hgb 16.0 g/dL (11.7-16.6) 01/09/22 08:12 Hct 47.5 % (42.0-52.0) 01/09/22 08:12 MCV 91.5 fl (80-94) 01/09/22 08:12 MCH 30.8 pg (28.0-34.0) 01/09/22 08:12 MCHC 33.7 g/dL (30.0-36.0) 01/09/22 08:12 RDW 12.9 % (12.1-15.1) 01/09/22 08:12 Plt Count 160 10^3/cmm (130-400) 01/09/22 08:12 MPV 10.8 fL (7.4-10.4) H 01/09/22 08:12 Neut % (Auto) 82.6 % 01/09/22 08:12 Lymph % (Auto) 12.5 % 01/09/22 08:12 [place] % (Auto) 4.1 % 01/09/22 08:12 Eos % (Auto) 0.3 % 01/09/22 08:12 Baso % (Auto) 0.3 % 01/09/22 08:12 Neut # (Auto) 7.26 10^3/uL (1.8-7.7) 01/09/22 08:12 Lymph # (Auto) 1.1 10^3/uL (0.8-4.8) 01/09/22 08:12 [place] # (Auto) 0.4 10^3/uL (0.2-0.9) 01/09/22 08:12 Eos # (Auto) 0.0 10^3/uL (0.0-0.8) 01/09/22 08:12 Baso # (Auto) 0.0 10^3/uL (0.0-0.1) 01/09/22 08:12 Nucleated RBC % (auto) 0 % 01/09/22 08:12 Nucleated RBCs # 0.0 /100WBC 01/09/22 08:12 Sodium 140 mmol/L (136-145) 01/09/22 08:12 Potassium 4.2 mmol/L (3.5-5.1) 01/09/22 08:12 Chloride 101 mmol/L (98-107) 01/09/22 08:12 Carbon Dioxide 26 mmol/L (22-29) 01/09/22 08:12 Anion Gap 17.2 (5-19) 01/09/22 08:12 BUN 18 mg/dL (6-20) 01/09/22 08:12 Creatinine 0.8 mg/dL (0.7-1.2) 01/09/22 08:12 GFR Calculation 101.1 mL/min (90-130) 01/09/22 08:12 Glucose 154 mg/dL (65-115) H 01/09/22 08:12 Calculated Osmolality 295 mOsm/kg (285-295) 01/09/22 08:12 Lactic Acid 1.8 mmol/L (0.5-2.2) 01/09/22 08:44 Calcium 9.2 mg/dL (8.5-10.5) 01/09/22 08:12 Magnesium 1.8 mg/dL (1.7-2.3) 01/09/22 08:12 Total Bilirubin 1.1 mg/dL (0.15-1.2) 01/09/22 08:12 AST 39 U/L (0-40) 01/09/22 08:12 ALT 42 U/L (0-41) H 01/09/22 08:12 Alkaline Phosphatase 117 IU/L (40-130) 01/09/22 08:12 Total Protein 7.0 g/dL (6.6-8.7) 01/09/22 08:12 Albumin 4.1 g/dL (3.5-5.2) 01/09/22 08:12 Globulin 2.9 g/dL (1.3-4.6) 01/09/22 08:12 Lipase 19 U/L (13-60) 01/09/22 08:12 Serum Ketones Negative (Negative) 01/09/22 08:12 Discharge Plan Discharge Patient Disposition: Xfer Short-Term Hosp Clinical Impression: Perforation of viscus, Complications of gastric bypass surgery Condition: Stable Prescriptions: No Action hydrocodone-acetaminophen 5-325 mg tablet 1 tab PO Q6H PRN (Reason: pain) 4 Days Qty: 16 0RF Bariatric Multivitamins 45 mg iron- 800 mcg-120 mcg Capsule 1 cap PO BID 0RF Referrals: Arya Shelby MD [Primary Care Provider] - Coding Level of Care Code ED Pharmacy Graduate Intern for Chg Fwd Exam Comprehensive
[2022-01-09] MEDS: piperacillin-tazobactam 3.375 GM in sodium chloride 0.9% (plus) 50 ML IV (10:18)
== END 2022-01-09 11:32 | disposition short-term general hospital (02) ==
PROVIDERS: Emergency Provider Family Medicine; PCP Family Medicine
DX: K63.1 Perforation of intestine (nontraumatic) (principal); T81.89XA Other complications of procedures, not elsewhere classified, initial encounter; Y83.2 Surgical operation with anastomosis, bypass or graft as the cause of abnormal reaction of the patient, or of later complication, without mention of misadventure at the time of the procedure; Z98.84 Bariatric surgery status; Z98.0 Intestinal bypass and anastomosis status
CPT/HCPCS: 71045; 74177; 80053; 82009; 83605; 83690; 83735; 85025; 87040; 93005; 96365; 96375; 96376; 99285; J2270; J2405; J2543; J7030; Q9967

== ENCOUNTER 2023-09-16 10:10 | Outpatient (CLI) | payer OTHER, SELFPAY ==
[2023-09-16 11:37] LABS: Basophils % 0.7 %; Eosinophils # 0.1 10^3/uL (0.0-0.8); Eosinophils % 2.6 %; Hematocrit 43.8 % (37-53); Lymphocytes % 24.6 %; Mean Corpuscular HGB Conc 35.2 g/dL (30-55); Mean Corpuscular Hemoglobin 31.7 pg (27-33); Mean Corpuscular Volume 90.1 fl (82-101); Mean Platelet Volume 11.1 fL (7.4-10.4); Monocytes # 0.4 10^3/uL (0.2-0.9); Neutrophils # 2.61 10^3/uL (1.8-7.7); Neutrophils % 61.9 %; Nucleated Red Blood Cells % 0 %; Platelet Count 105 10^3/cmm (157-399); Red Blood Count 4.86 10^6/uL (3.85-5.65); Red Cell Distribution Width 13.2 % (12.1-15.1); White Blood Count 4.22 10^3/uL (3.29-11.43)
[2023-09-16 12:06] LABS: Thyroid Stimulating Hormone 0.95 uIU/mL (0.27-4.20); Tumor Marker Alpha Fetoprotein 3.9 ng/mL (0-8.3)
[2023-09-16 12:17] LABS: Alanine Aminotransferase 57 U/L (0-41); Albumin Level 4.1 g/dL (3.5-5.2); Alkaline Phosphatase 117 U/L (40-130); Anion Gap 15.1 (5-19); Aspartate Amino Transferase 47 U/L (0-40); Blood Urea Nitrogen 18 mg/dL (6-20); Calcium 8.9 mg/dL (8.5-10.5); Carbon Dioxide 27 mmol/L (22-29); Chloride 103 mmol/L (98-107); Chol HDL Ratio 2.22 mg/dL (1.0-5.00); Cholesterol 129 mg/dL (0-200); Globulin 2.7 g/dL (1.3-4.6); Glomerular Filtration Rate 117.5 mL/min (90-130); Glucose 97 mg/dL (65-115); HDL Cholesterol 58 mg/dL (60-100); Hepatitis A Antibody IgM Non-Reactive (Nonreactive); Hepatitis B Core AB, Total Non-Reactive (Nonreactive); Hepatitis B Surface AB < 3.5 (11.5-1000); Hepatitis B Surface Antigen Non-Reactive (Nonreactive); Hepatitis C Virus Antibody Non-Reactive (Nonreactive); LDL Cholesterol Calculated 61 mg/dL (50-129); LDL HDL Ratio 1.05 RATIO (0.00-3.22); Osmolality Calculated 294 mOsm/kg (285-295); Potassium 4.1 mmol/L (3.5-5.1); Sodium 141 mmol/L (136-145); Total Protein 6.8 g/dL (6.6-8.7); Triglycerides 50 mg/dL (0-150)
[2023-09-16 12:49] LABS: Gamma Glutamyl Transferase 73 U/L (8-61)
[2023-10-16 15:49] LABS: BRCA 1 & 2 Clinical Interpreta POSITIVE; BRCA 1&2 Result POSITIVE
== END 2023-09-16 10:11 | disposition home or self-care (01) ==
LOC: LAB 10:13
PROVIDERS: PCP Family Medicine; Visit Provider Family Medicine
DX: K74.60 Unspecified cirrhosis of liver (principal)
CPT/HCPCS: 36415; 80053; 80061; 81162; 82105; 82977; 84439; 84443; 85025; 86705; 86706; 86709; 86803; 87340

== ENCOUNTER 2023-10-09 12:56 | Outpatient (CLI) | payer OTHER, SELFPAY ==
--- NOTE | 2023-10-09 13:30 | CT_ITS ---
WS: [id number] Examination: CT abdomen pelvis wo con [id number] Reason for Exam: cirrhosis Date: October 09, 2023 Comparison: January 09, 2022 DLP: 824.[address] scans at [facility] use at least one of these dose optimization techniques: automated e xposure control; mA and/or kV adjustment per patient size (includes targeted exams where dose is matc hed to clinical indication); or iterative reconstruction. Findings: The heart is normal in size. There is coronary artery calcification and disease. There is no basilar effusion or consolidation identified. The liver is prominent in size. The contour is lobular. The left lobe is prominent. The parenchyma is enterogenous. There has been a cholecystectomy. The spleen is enlarged. There is no adrenal mass. The kidneys are normal and symmetric in size. There is no stone or hydronephrosis. The aorta is normal in size. The pancreas is grossly unremarkable. Previous surgical changes of a Tyrone-en-Y gastric bypass are noted. There is no bowel obstruction. The appendix is unremarkable. There is no free air. I see no large col lection of free fluid. There are scattered lymph nodes. Numerous collaterals and suspected varices are again noted. In gener al areas of increased density are noted within the mesentery. The prostate is prominent in size. DISH is noted involving the lower thoracic spine. Dominant L5-S1 degenerative changes are present. Impression: Findings are consistent with the diagnosis of cirrhosis. There is suspected the portal venous hyperte nsion with numerous varices. There is no bowel obstruction. There is no free air.
== END 2023-10-09 12:57 | disposition home or self-care (01) ==
LOC: RAD 12:56
PROVIDERS: PCP Family Medicine; Visit Provider Family Medicine
DX: K74.60 Unspecified cirrhosis of liver (principal)
CPT/HCPCS: 74176

== ENCOUNTER 2024-02-09 11:38 | Day surgery (SDC) | payer OTHER, SELFPAY ==
[2024-02-09 11:56] VITALS: BP 111/66; PULSE 66; RESP 18; TEMP 36.7; O2SAT 98; BMI 31.8
--- NOTE | 2024-02-09 12:13 | P.HP_ITS ---
Same Day Surgery H&P Indication for Procedure/HPI DATE OF PROCEDURE: February 09, 2024 CHIEF COMPLAINT/INDICATIONFOR SURGICAL PROCEDURE: need for screening colonoscopy PREOP DIAGNOSIS: need for screening colonoscopy PLANNED PROCEDURE: Operation Date: 02/09/24 13:15 Proposed Procedures p Colonoscopy 57426, G0121, Z12.11(Not Applicable) - Meir Aldana MD Medications/Allergies* Home Medications Medication Instructions Recorded Confirmed Type zxmzjjfh-irqkfxkx-[id number] 45 mg-folic 1 cap PO BID 01/09/22 02/09/24 History acid 800 mcg-vit K 120 mcg capsule (Bariatric Multivitamins) pantoprazole 40 mg tablet,delayed 40 mg PO DAILY 09/16/23 02/09/24 History release Allergies/Adverse Reactions Allergy/AdvReac Type Severity Reaction Status Date / Time No Known Allergies Allergy Verified 02/09/24 11:55 Pertinent History/Comorbid Conditions* Medical History (Updated 10/21/23 @ 10:47 by Jose Vinson MD) BRCA2 positive BRCA1 positive Obesity Cirrhosis GILES (nonalcoholic steatohepatitis) Morbid obesity Diabetes prior to bariatric surgery Left ureteral calculus Surgical History (Updated 09/16/23 @ 08:30 by Jose Vinson MD) History of colonoscopy (~2018) History of hernia surgery History of laparoscopic cholecystectomy History of eye surgery PROSTHETIC RIGHT EYE H/O gastric bypass Family History (Updated 09/25/21 @ 10:43 by Janeen Austin LPN) Father, AT AGE 74 CAD (coronary artery disease) Father Heart attack Father Denies family history of Anesthesia complication Bleeding disorder Social History Smoking and tobacco/nicotine status: current every day tobacco/nicotine user smokeless tobacco Smokeless tobacco user: chewing tobacco Smokeless tobacco details: 1 can a week Alcohol intake: never Substance/Drug Use: never Adopted: No Caregiver/support person: Yes Lives independently: Yes Housing: House Marital status: Current occupational status: employed Current occupational exposures/hazards: No Sexually active: No Do you think of yourself as: Straight/Heterosexual Current gender identity: Male Kayla/Tenriism: Pentecostal Special kayla needs: No Pertinent Exam Findings alert, oriented x 3, clear to auscultation bilaterally and regular rate & rhythm Recommendations Surgery/Procedure today Coding Level of Care Code Acute Code for Chg Fwd
[2024-02-09] MEDS: sodium chloride 0.9% 1,000 ML 30 ML IV (12:14)
--- NOTE | 2024-02-09 12:49 | P.ANESASSM_ITS ---
Pre-Anesthetic Assessment Height/Weight: Height 1.78 m Weight 100.698 kg Temp Pulse Resp BP Pulse Ox O2 Del Method 98.0 F 66 18 111/66 98 Room Air 02/09/24 11:56 02/09/24 11:56 02/09/24 11:56 02/09/24 11:56 02/09/24 11:56 02/09/24 11:56 Preop Diagnosis: need for screening colonoscopy Operation Date: 02/09/24 13:15 Proposed Procedures p Colonoscopy 96185, G0121, Z12.11(Not Applicable) - Meir Aldana MD Was Beta Leila taken within 24 hours: N/A Was Clonidine taken within 24 hours: N/A Last intake: Intake Last Liquid Date 02/08/24 Last Liquid Time 20:30 Last Solid Date 02/08/24 Last Solid Time 08:00 Social Tobacco Exam alert, oriented x 3, clear to auscultation bilaterally and regular rate & rhythm Airway Submandibular: within normal limits Cervical ROM: within normal limits Mallampati: Class II Dentition: full History/ROS No significant history except as noted and No significant complaints Pulmonary None reported CV/HEM None reported None reported Hepatic Cirrhosis and Hepatitis GI None reported Hx gastric bypass Metabolic Diabetes [facility] None reported Neuropsych None reported Anesthetic Plan ASA status: 2 Anesthesia: Anesthesia Evaluation and MAC Risk of > 500 ml blood loss (7ml/kg in children): No Medications/Allergies Home Medications Medication Instructions Recorded Confirmed Last Taken Type ipxldnyc-kvswuidd-cgaf 45 mg-folic 1 cap PO BID 01/09/22 02/09/24 02/04/24 History acid 800 mcg-vit K 120 mcg capsule (Bariatric Multivitamins) pantoprazole 40 mg tablet,delayed 40 mg PO DAILY 09/16/23 02/09/24 02/04/24 History release Allergies Allergy/AdvReac Type Severity Reaction Status Date / Time No Known Allergies Allergy Verified 02/09/24 11:55 Current Medications Generic Name Dose Route Start Last Admin Trade Name Freq PRN Reason Stop Dose Admin Sodium Chloride 1,000 mls @ 30 mls/hr 02/09/24 12:00 02/09/24 12:14 Sodium Chloride 0.9% IV 02/10/24 11:59 30 mls/hr .Q24H KENNEDY Administration PFSH Anesthesia Medical History (Updated 10/21/23 @ 10:47 by Jose Vinson MD) BRCA2 positive BRCA1 positive Obesity Cirrhosis GILES (nonalcoholic steatohepatitis) Morbid obesity Diabetes prior to bariatric surgery Left ureteral calculus Surgical History History of colonoscopy (~2018) History of hernia surgery History of laparoscopic cholecystectomy History of eye surgery PROSTHETIC RIGHT EYE H/O gastric bypass Family History Father , AT AGE 74 CAD (coronary artery disease) Heart attack Denies family history of Anesthesia complication Bleeding disorder Social History Smoking and tobacco/nicotine status: current every day tobacco/nicotine user smokeless tobacco Smokeless tobacco user: chewing tobacco Smokeless tobacco details: 1 can a week Alcohol intake: never Substance/Drug Use: never Adopted: No Caregiver/support person: Yes Lives independently: Yes Housing: House Marital status: Current occupational status: employed Current occupational exposures/hazards: No Sexually active: No Do you think of yourself as: Straight/Heterosexual Current gender identity: Male Kayla/Buddhist: Jehovah'S Witness Special kayla needs: No Data Anesthesia Cardiac Studies: No Data to Display
[2024-02-09 13:40] VITALS: BP 99/66; PULSE 92; RESP 18; TEMP 36.5; O2SAT 91
[2024-02-09 13:48] VITALS: BP 110/71; PULSE 71; RESP 18; TEMP 36.3; O2SAT 93
--- NOTE | 2024-02-09 15:10 | ANE.PACU2 ---
Inpatient post-anesthesia follow up: Airway intact: Yes Vital signs: Temperature 97.4 F Pulse Rate 71 Respiratory Rate 18 Blood Pressure 110/71 Pulse Oximetry 93 Oxygen Delivery Me thod Room Air Oxygen Flow Rate Fraction of Inspir ed Oxygen Hydration adequate: Yes Nausea and vomiting: No Pain level: 2 Mental status: Baseline
== END 2024-02-09 14:00 | disposition home or self-care (01) ==
PROVIDERS: PCP Family Medicine; Visit Provider Surgery
PROC: 0DJD8ZZ Inspection of Lower Intestinal Tract, Via Natural or Artificial Opening Endoscopic (ICD-10-PCS; CPT 45378; principal; 2024-02-09 13:15)
DX: Z12.11 Encounter for screening for malignant neoplasm of colon (principal); E66.01 Morbid (severe) obesity due to excess calories; Z68.31 Body mass index [BMI] 31.0-31.9, adult; E11.9 Type 2 diabetes mellitus without complications; Z98.84 Bariatric surgery status; F17.220 Nicotine dependence, chewing tobacco, uncomplicated; K57.30 Diverticulosis of large intestine without perforation or abscess without bleeding
CPT/HCPCS: 45380; 88305; J2704; J7030

== ENCOUNTER 2024-09-01 10:49 | Emergency (ER) | payer OTHER, SELFPAY ==
[2024-09-01] VITALS (8 sets, daily range): BP systolic 93–116; BP diastolic 56–67; PULSE 55–69; RESP 16–18; TEMP 36.6; O2SAT 97–99; BMI 32.4
[2024-09-01 11:15] LABS: Basophils # 0.1 10^3/uL (0.0-0.1); Eosinophils # 0.2 10^3/uL (0.0-0.8); Eosinophils % 3.6 %; Hematocrit 43.6 % (37-53); Lymphocytes % 16.3 %; Mean Corpuscular HGB Conc 33.9 g/dL (30-55); Mean Corpuscular Volume 91.4 fl (82-101); Monocytes # 0.6 10^3/uL (0.2-0.9); Monocytes % 10.7 %; Neutrophils # 4.01 10^3/uL (1.8-7.7); Neutrophils % 68.1 %; Nucleated Red Blood Cells % 0 %; Platelet Count 117 10^3/cmm (157-399); Red Blood Count 4.77 10^6/uL (3.85-5.65); Red Cell Distribution Width 13.9 % (12.1-15.1); White Blood Count 5.89 10^3/uL (3.29-11.43)
[2024-09-01 11:33] LABS: Alanine Aminotransferase 46 U/L (0-41); Albumin Level 4.2 g/dL (3.5-5.2); Alkaline Phosphatase 105 U/L (40-130); Anion Gap 15.6 (5-19); Aspartate Amino Transferase 44 U/L (0-40); Blood Urea Nitrogen 22 mg/dL (6-20); Calcium 9.5 mg/dL (8.5-10.5); Carbon Dioxide 26 mmol/L (22-29); Chloride 101 mmol/L (98-107); Globulin 2.8 g/dL (1.3-4.6); Glomerular Filtration Rate 100.4 mL/min (90-130); Glucose 147 mg/dL (65-115); Lipase 22 U/L (13-60); Osmolality Calculated 292 mOsm/kg (285-295); Potassium 4.6 mmol/L (3.5-5.1); Sodium 138 mmol/L (136-145); Total Bilirubin 1.1 mg/dL (0.15-1.2)
--- NOTE | 2024-09-01 12:14 | CT_ITS ---
WS: [id number] CT ABDOMEN PELVIS TECHNIQUE: Contrast-enhanced CT of the abdomen and pelvis with coronal and sagittal reformatted images. CLINICAL INFORMATION: abd pain COMPARISON: 10/09/2023 DLP: 1026.[address] scans at [facility] use at least one of these dose optimization techniques: automated exposure control; mA and/or kV adjustment per patient size (includes targeted exams where dose is matched to clinical indication); or iterative reconstruction. FINDINGS: Recurrent umbilical and supraumbilical hernia with incarcerated loops of small bowel. 2 separate hernia defects adjacent to the umbilicus with herniated small bowel loops and surrounding fluid. Recommend surgical consultation. No free air. A few dilated loops of small bowel with submucosal enhancement proximal to the herniation suggestive of developing obstruction. Evidence of prior small bowel anastomosis in the LEFT upper quadrant. Prior ventral abdominal wall hernia repair with surgical clips. Cirrhosis. Splenomegaly. Gastric bypass. Evidence of portal venous hypertension. Normal caliber abdominal aorta. Adrenal glands are normal. No hydronephrosis. Enlarged prostate with calcification. Evidence of bladder outlet obstruction. Prostate measures 4.[address]/CT abdomen pelvis w con* [id number] IMPRESSION: 1. Recurrence umbilical and supraumbilical hernias with incarcerated loops of small bowel with surrounding peripheral enhancing fluid. No free air. Recommend surgical consultation 2. A few dilated loops of small bowel with some mucosal enhancement proximal t o the herniation suggestive of developing obstruction 3. Cirrhosis with evidence of portal venous hypertension and splenomegaly. 4. Gastric bypass. Notified Ronnie Burnett DO at 09/01/2024 1:49 PM.
--- NOTE | 2024-09-01 12:15 | W.ED.ABDPA2 ---
HPI - Abdominal Pain General: Chief Complaint: Abdominal Pain Stated Complaint: abd pain, nausea Time Seen by Provider: 09/01/24 11:29 History of Present Illness: 53-year-old male presents to the emergency room with complaint of abdominal discomfort for the last couple days progressively worsening. Patient has a history of a Tyrone-en-Y bypass. A few years back he developed an ulcer at anastomosis site required a laparotomy. He is a ventral hernia as a result of this although there is nothing that seems to be strangulated and not at this time. He has been very nauseous his last bowel movement was yesterday has not had any hemoptysis or hematemesis he has not had any hematochezia or melena. He denies dysuria urgency or frequency no fever. Associated Symptoms: Reports nausea; Denies chills, dysuria, fever(s), hematochezia, hematemesis, melena and vomiting Related Data Home Medications ?Medication ?Instructions ?Recorded ?Confirmed [id number] 45 mg-folic 1 cap PO BID 01/09/22 09/01/24 acid 800 mcg-vit K 120 mcg capsule (Bariatric Multivitamins) pantoprazole 40 mg tablet,delayed 40 mg PO QAM 09/16/23 09/01/24 release calcium 600 mg (as 1 tab PO BID 09/01/24 09/01/24 carbonate)-vitamin D3 5 mcg (200 unit) tablet cyanocobalamin (vitamin B-12) 1,000 mcg sublingual BEDTIME 09/01/24 09/01/24 1,000 mcg sublingual tablet nadolol 20 mg tablet 20 mg PO QAM 09/01/24 09/01/24 Allergies Allergy/AdvReac Type Severity Reaction Status Date / Time No Known Allergies Allergy Verified 09/01/24 11:14 Review of Systems Const: Denies: fever(s) or chills Card: Denies: chest pain Resp: Denies: dyspnea GI: Reports: abdominal pain and nausea; Denies: vomiting, hematemesis, hematochezia or melena : Denies: dysuria, urinary frequency or urinary urgency Musc: Denies: neck pain or back pain Skin/Breast: Denies: rash PFSH ED PFSH: Medical History BRCA positive Colon polyp BRCA2 positive BRCA1 positive Obesity Cirrhosis GILES (nonalcoholic steatohepatitis) Morbid obesity Diabetes prior to bariatric surgery Left ureteral calculus Surgical History History of colonoscopy (~2018) History of hernia surgery History of laparoscopic cholecystectomy History of eye surgery PROSTHETIC RIGHT EYE H/O gastric bypass Family History Father , AT AGE 74 CAD (coronary artery disease) Heart attack Denies family history of Anesthesia complication Bleeding disorder Social History Smoking and tobacco/nicotine status: never used tobacco/nicotine Alcohol intake: never Substance/Drug Use: never Adopted: No Caregiver/support person: Yes Lives independently: Yes Housing: House Marital status: Current occupational status: employed Current occupational exposures/hazards: No Sexually active: No Do you think of yourself as: Straight/Heterosexual Current gender identity: Male Kayla/Amish: Zoroastrianism Special kayla needs: No Physical Exam Const: GENERAL APPEARANCE: cooperative ORIENTATION/CONSCIOUSNESS: Yes awake, Yes oriented to person, Yes oriented to place and Yes oriented to time HENMT: COMMON NORMALS: normocephalic, atraumatic and hearing grossly normal bilaterally HEAD & SCALP: normocephalic and atraumatic Resp: COMMON NORMALS: normal respiratory effort, No retractions, No use of accessory muscles and clear to auscultation bilaterally AUSCULTATION: clear to auscultation bilaterally Cardio: COMMON NORMALS: regular rate, regular rhythm and No murmurs present (Cardio) RATE: regular rate RHYTHM: regular rhythm GI: COMMON NORMALS: No hepatosplenomegaly present AUSCULTATION: Yes Absent bowel sounds PALPATION: Yes Tenderness to palpation present (GI) (Diffuse. Tender palpable umbilical and supraumbilical hernia at the midlin), No Guarding due to palpation present (GI) and Yes No hepatosplenomegaly present Extremity: COMMON NORMALS: normal to inspection, capillary refill normal, no clubbing, cyanosis or edema, no calf tenderness and no pedal edema Neuro: SENSORIUM/ORIENTATION: Yes oriented to person, Yes oriented to place and Yes oriented to time Skin: COMMON NORMALS: no rashes or lesions noted GENERAL SKIN EXAM: no rashes or lesions noted Course Vital Signs: Vital signs: Vital Signs Temperature 97.9 F 09/01/24 11:08 Pulse Rate 56 L 09/01/24 19:34 Respiratory Rate 18 09/01/24 19:34 Blood Pressure 102/56 09/01/24 19:34 Pulse Oximetry 98 09/01/24 19:34 Oxygen Delivery Me thod Room Air 09/01/24 11:08 MDM - Abdominal Pain Medical Decision Making Consulted general surgery on-call Dr. Mckeon see his note. We did initially place NG. Will later found the patient does have esophageal varices NG was removed he does not have any evidence of bleeding. He is not having any significant distention at this time he still has lateral abdominal pain and cramping. We had contacted [facility] they had accepted the patient however they were not sure when he would get a bed we are very concerned about progression of his obstruction or perforation after consultation with the family we contacted [facility] in [place] as well. Talk to the on-call general surgeon they have accepted the patient on transfer. Patient transferred via [facility]. Lab Data 09/01/24 11:05 09/01/24 11:05 Labs/Radiology: Radiology Impressions Abdomen/Pelvis CT 09/01/24 12:14 IMPRESSION: 1. Recurrence umbilical and supraumbilical hernias with incarcerated loops of small bowel with surrounding peripheral enhancing fluid. No free air. Recommend surgical consultation 2. A few dilated loops of small bowel with some mucosal enhancement proximal to the herniation suggestive of developing obstruction 3. Cirrhosis with evidence of portal venous hypertension and splenomegaly. 4. Gastric bypass. Notified Ronnie Burnett DO at 09/01/2024 1:49 PM. Chest X-Ray 09/01/24 14:21 Impression: Satisfactory placement of nasogastric tube. Laboratory Results WBC 5.89 10^3/uL (3.29-11.43) 09/01/24 11:05 RBC 4.77 10^6/uL (3.85-5.65) 09/01/24 11:05 Hgb 14.80 g/dL (11.27-16.99) 09/01/24 11:05 Hct 43.6 % (37-53) 09/01/24 11:05 MCV 91.4 fl (82-101) 09/01/24 11:05 MCH 31.0 pg (27-33) 09/01/24 11:05 MCHC 33.9 g/dL (30-55) 09/01/24 11:05 RDW 13.9 % (12.1-15.1) 09/01/24 11:05 Plt Count 117 10^3/cmm (157-399) L 09/01/24 11:05 MPV 11.0 fL (7.4-10.4) H 09/01/24 11:05 Neut % (Auto) 68.1 % 09/01/24 11:05 Lymph % (Auto) 16.3 % 09/01/24 11:05 [place] % (Auto) 10.7 % 09/01/24 11:05 Eos % (Auto) 3.6 % 09/01/24 11:05 Baso % (Auto) 1.0 % 09/01/24 11:05 Neut # (Auto) 4.01 10^3/uL (1.8-7.7) 09/01/24 11:05 Lymph # (Auto) 1.0 10^3/uL (0.8-4.8) 09/01/24 11:05 [place] # (Auto) 0.6 10^3/uL (0.2-0.9) 09/01/24 11:05 Eos # (Auto) 0.2 10^3/uL (0.0-0.8) 09/01/24 11:05 Baso # (Auto) 0.1 10^3/uL (0.0-0.1) 09/01/24 11:05 Nucleated RBC % (auto) 0 % 09/01/24 11:05 Nucleated RBCs # 0.0 /100WBC 09/01/24 11:05 PT 15.70 SECONDS (12.1-14.9) H 09/01/24 14:09 INR 1.17 (0.8-1.2) 09/01/24 14:09 APTT 27.0 SECONDS (23.9-36.7) 09/01/24 14:09 Sodium 138 mmol/L (136-145) 09/01/24 11:05 Potassium 4.6 mmol/L (3.5-5.1) 09/01/24 11:05 Chloride 101 mmol/L (98-107) 09/01/24 11:05 Carbon Dioxide 26 mmol/L (22-29) 09/01/24 11:05 Anion Gap 15.6 (5-19) 09/01/24 11:05 BUN 22 mg/dL (6-20) H 09/01/24 11:05 Creatinine 0.8 mg/dL (0.7-1.2) 09/01/24 11:05 GFR Calculation 100.4 mL/min (90-130) 09/01/24 11:05 Glucose 147 mg/dL (65-115) H 09/01/24 11:05 Calculated Osmolality 292 mOsm/kg (285-295) 09/01/24 11:05 Lactic Acid 0.9 mmol/L (0.5-2.2) 09/01/24 14:09 Calcium 9.5 mg/dL (8.5-10.5) 09/01/24 11:05 Total Bilirubin 1.1 mg/dL (0.15-1.2) 09/01/24 11:05 AST 44 U/L (0-40) H 09/01/24 11:05 ALT 46 U/L (0-41) H 09/01/24 11:05 Alkaline Phosphatase 105 U/L (40-130) 09/01/24 11:05 Total Protein 7.0 g/dL (6.6-8.7) 09/01/24 11:05 Albumin 4.2 g/dL (3.5-5.2) 09/01/24 11:05 Globulin 2.8 g/dL (1.3-4.6) 09/01/24 11:05 Lipase 22 U/L (13-60) 09/01/24 11:05 Urine Color Dark yellow (Yellow) A 09/01/24 12:47 Urine Appearance Cloudy (CLEAR) A 09/01/24 12:47 Urine pH 6.5 (5-7) 09/01/24 12:47 Ur Specific [place] 1.026 (1.005-1.030) 09/01/24 12:47 Urine Protein Negative (Negative) 09/01/24 12:47 Urine Glucose (UA) Negative (Normal) 09/01/24 12:47 Urine Ketones 1+ (Negative) H 09/01/24 12:47 Urine Blood Negative (Negative) 09/01/24 12:47 Urine Nitrate Negative (Negative) 09/01/24 12:47 Urine Bilirubin Negative (Negative) 09/01/24 12:47 Urine Urobilinogen 1.0 mg/dL (Negative) 09/01/24 12:47 Ur Leukocyte Esterase Negative (Negative) 09/01/24 12:47 Urine RBC 0-4 /hpf (0-2) H 09/01/24 12:47 Urine WBC 0-4 /hpf (0-5) H 09/01/24 12:47 Ur Squamous Epith Cells 5-10 /hpf (0-5) H 09/01/24 12:47 Amorphous Sediment Not Reportable 09/01/24 12:47 Urine Bacteria Trace /hpf (NONE) 09/01/24 12:47 Urine Mucus 2+ /hpf 09/01/24 12:47 All radiology interpretation(s) finalized by discharge Discharge Plan Discharge Patient Disposition: Xfer Short-Term Hosp Clinical Impression: Ventral hernia, Cirrhosis of liver, Small bowel obstruction, Hernia, umbilical, History of Tyrone-en-Y gastric bypass, Esophageal varices Condition: Stable Referrals: Jose Vinson MD [Primary Care Provider] - Print Language: Kazakh Coding Level of Care Code 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
[2024-09-01] MEDS: pantoprazole 40 mg SDV 80 MG IVP (12:27)
[2024-09-01] MEDS: ondansetron 2 mg/ML SDV 2 mL 4 MG IVP (12:28)
[2024-09-01] MEDS: morphine 4 mg/mL SDV 1 mL 2 MG IVP (12:28)
[2024-09-01] MEDS: sodium chloride 0.9% 1,000 ML 999 ML IV ×2 (12:30→13:36)
[2024-09-01 13:01] LABS: Bilirubin Urine Negative (Negative); Blood Urine Negative (Negative); Glucose Urine UA Negative (Normal); Ketones Urine 1+ (Negative); Leukocyte Esterase Urine Negative (Negative); Nitrate Urine Negative (Negative); Protein Urine Negative (Negative); Specific Gravity, Urine 1.026 (1.005-1.030); Urine Appearance Cloudy (CLEAR); Urine Color Dark Yellow (Yellow); pH Urine 6.5 (5-7)
[2024-09-01] MEDS: iohexol 350 mg/mL 500 mL Btl (per mL) IV (13:09)
[2024-09-01 13:24] LABS: UA Manual Slide Review YES
[2024-09-01 13:25] LABS: Add Urine Microscopic? YES; RBC Urine 0-4 /hpf (0-2); WBC Urine 0-4 /hpf (0-5)
[2024-09-01 13:26] LABS: Add Urine Culture? No; Bacteria Urine TRACE /hpf; Mucus Urine 2+ /hpf
--- NOTE | 2024-09-01 13:35 | PC.NURSE ---
pt b/p 89/59 and recheck 88/57, pt placed in trendelenburg; Dr. Burnett notified. verbal order for NS 1L bolus; see MAR
--- NOTE | 2024-09-01 13:43 | PC.NURSE ---
pressure bag applied to normal saline bolus
--- NOTE | 2024-09-01 14:21 | XR_ITS ---
WS: [id number] Portable AP upright chest, 09/01/2024 Clinical Data: NG tube placement Comparison: Portable chest, 01/09/2022 Findings: The nasogastric tube appears to lie in the esophagus. It then enters the stomach and ends in the body of the stomach. XR/XR chest 1V portable [id number] Impression: Satisfactory placement of nasogastric tube.
--- NOTE | 2024-09-01 14:50 | PM.CONSULT ---
Providers/Reason For Consult Consulting Physician/Specialty*: Dr. Mckeon general surgery Reason for Consult*: Ventral hernia Primary Care Provider: Jose Vinson MD History of Present Illness History of Present Illness Gumaro Pnieda is a 53 year old male who presents with worsening abdominal pain at the 2 ventral hernia sites. 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 Compensated cirrhotic. Had a Tyrone-en-Y gastric bypass in 2018 which required a revision 1 year later due to a marginal ulcer and disruption of the GJ anastomosis. He then had a couple attempts at her ventral hernia repair with mesh which were unsuccessful. Mesh was used but it was not adequately fixated to the abdominal wall according to patient's family. Both of these surgeries were complicated by high intraoperative blood loss. Patient is not clinically obstructed as he is still passing gas and had a bowel movement early this morning. On exam abdomen is benign and soft. I can palpate [address] scan report mentions possible SBO secondary to incarcerated bowel in these ventral hernias. Medications/Allergies Home Medications ?Medication ?Instructions ?Recorded ?Confirmed ?Last Taken ?Type [id number] 45 mg-folic 1 cap PO BID 01/09/22 09/01/24 09/01/24 History acid 800 mcg-vit K 120 mcg capsule (Bariatric Multivitamins) pantoprazole 40 mg tablet,delayed 40 mg PO QAM 09/16/23 09/01/24 09/01/24 History release calcium 600 mg (as 1 tab PO BID 09/01/24 09/01/24 09/01/24 History carbonate)-vitamin D3 5 mcg (200 unit) tablet cyanocobalamin (vitamin B-12) 1,000 mcg sublingual BEDTIME 09/01/24 09/01/24 08/31/24 History 1,000 mcg sublingual tablet nadolol 20 mg tablet 20 mg PO QAM 09/01/24 09/01/24 09/01/24 History Allergies Allergy/AdvReac Type Severity Reaction Status Date / Time No Known Allergies Allergy Verified 09/01/24 11:14 PFSH Acute PFSH: Medical History BRCA positive Colon polyp BRCA2 positive BRCA1 positive Obesity Cirrhosis TORRES (nonalcoholic steatohepatitis) Morbid obesity Diabetes prior to bariatric surgery Left ureteral calculus Surgical History History of colonoscopy (~2018) History of hernia surgery History of laparoscopic cholecystectomy History of eye surgery PROSTHETIC RIGHT EYE H/O gastric bypass Family History Father , AT AGE 74 CAD (coronary artery disease) Heart attack Denies family history of Anesthesia complication Bleeding disorder Social History Smoking and tobacco/nicotine status: never used tobacco/nicotine Alcohol intake: never Substance/Drug Use: never Adopted: No Caregiver/support person: Yes Lives independently: Yes Housing: House Marital status: Current occupational status: employed Current occupational exposures/hazards: No Sexually active: No Do you think of yourself as: Straight/Heterosexual Current gender identity: Male Kayla/Holiness: Religious Special kayla needs: No Vitals/I&O/Wt Last Vital Signs Temp 97.9 F 09/01/24 11:08 Pulse 69 09/01/24 13:44 Resp 16 09/01/24 12:28 BP 103/60 09/01/24 13:44 Pulse Ox 97 09/01/24 13:44 O2 Del Method Room Air 09/01/24 11:08 08/31/24 09/01/24 09/01/24 22:59 06:59 14:59 Intake Total 1999 Balance 1999 Weight last 48 hrs Weight 226 lb Physical Exam Narrative: Chest: Unlabored breathing room air. No lymphadenopathy. Heart: Regular rate and rhythm. Abdomen: Soft, mildly tender, nondistended. No masses or lymphadenopathy. Data 09/01/24 11:05 09/01/24 11:05 A&P Assessment and plan (1) Ventral hernia: Plan 53-year-old male who presented with worsening abdominal pain secondary to 2 recurrent ventral hernias. Patient is a cirrhotic. He has had 2 prior attempts at ventral hernia repair which were complicated by recurrence and bleeding. Given the fact that he is a cirrhotic he is at high risk of decompensation perioperatively. He needs to be transferred to higher level of care where hepatology and then superintendent circus is available to provide assistance should he decompensate from hernia repair. PDMP PDMP Reviewed: Not Reviewed Coding Level of Care Code 90391 Diagnoses Ventral hernia K43.9 Time Spent (min) 30
[2024-09-01 15:00] LABS: Lactic Sepsis W/Reflex 0.9 mmol/L (0.5-2.2)
[2024-09-01 15:06] LABS: INR 1.17 (0.8-1.2)
--- NOTE | 2024-09-01 15:34 | PC.NURSE ---
this nurse spoke with Cristiane with [facility] triage, per Cristiane unsure if bed will be available today or tomorrow; states they are working off pending discharges
--- NOTE | 2024-09-01 18:21 | DCPLANNER ---
accepted at [facility] by Dr. Andrea pending bed assignment
--- NOTE | 2024-09-01 18:27 | PC.NURSE ---
removed NG tube per Dr. Burnett d/t hx of esophageal varices
--- NOTE | 2024-09-01 18:42 | PC.NURSE ---
called report to [facility], room number 4986 bed 2. report number .
--- NOTE | 2024-09-01 18:43 | PC.NURSE ---
family notified of C acceptance
== END 2024-09-01 19:36 | disposition short-term general hospital (02) ==
PROVIDERS: Emergency Medicine; Emergency Provider Family Medicine; PCP Family Medicine
DX: K43.6 Other and unspecified ventral hernia with obstruction, without gangrene (principal); K42.0 Umbilical hernia with obstruction, without gangrene; K74.60 Unspecified cirrhosis of liver; Z98.84 Bariatric surgery status; I85.10 Secondary esophageal varices without bleeding; E11.9 Type 2 diabetes mellitus without complications
CPT/HCPCS: 36415; 71045; 74177; 80053; 81001; 83605; 83690; 85025; 85610; 85730; 96361; 96374; 96375; 99285; J2270; J2405; J2470; J7030